=== PATIENT | male | born 1940 | race Caucasian/White ===

== ENCOUNTER 2018-07-18 18:26 | Inpatient (IN) | payer MEDICARE ==
[~2018-07-18] VITALS: Ht 165.1 cm; Wt 73.0 kg
--- NOTE | 2018-07-18 18:37 | NUR ---
LI OGDEN AT BEDSIDE FOR MSE.
[2018-07-18] MEDS ORDERED: ASPI-605 PO (18:38)
[2018-07-18] MEDS ORDERED: LISI10TA5 PO (18:38)
[2018-07-18] MEDS ORDERED: ACET-2154 PO (18:38)
[2018-07-18] MEDS ORDERED: FAMO-132 PO (18:38)
[2018-07-18] MEDS ORDERED: ATOR40TA PO (18:38)
[2018-07-18] MEDS ORDERED: HEPA500034 SUBCUT (18:38)
--- NOTE | 2018-07-18 18:46 | NUR ---
INDUCTION COORDINATION ENGINEER AT BEDSIDE.
--- NOTE | 2018-07-18 18:55 | NUR ---
PT TAKEN TO RADIOLOGY FOR CT SCAN.
--- NOTE | 2018-07-18 18:59 | NUR ---
SHIFT REPORT GIVEN TO MAURA Porras RN.
[2018-07-18 19:03] LABS: BASOPHILS # (AUTO) 0.1 K/uL (0.0-8.0); BASOPHILS % (AUTO) 1.1 % (0.0-2.0); EOSINOPHILS % (AUTO) 0.6 % (0.0-7.0); HEMATOCRIT 37.2 % (36.7-47.1); HEMOGLOBIN 12.8 g/dL (12.5-16.3); LYMPHOCYTES # (AUTO) 1.5 K/uL (20.0-40.0); LYMPHOCYTES % (AUTO) 27.9 % (20.5-51.5); MEAN CORPUSCULAR HEMOGLOBIN 31.3 uug (23.8-33.4); MEAN CORPUSCULAR HGB CONC 35 g/dL (32.5-36.3); MEAN CORPUSCULAR VOLUME 90.6 fL (73.0-96.2); MONOCYTES # (AUTO) 0.5 K/uL (2.0-10.0); MONOCYTES % (AUTO) 8.4 % (0.0-11.0); NEUTROPHILS # (AUTO) 3.4 K/uL (1.8-8.9); PLATELET COUNT (AUTO) 203 K/uL (152-348); RED BLOOD CELL COUNT(AUTO) 4.11 MIL/uL (4.06-5.63); WHITE BLOOD COUNT (AUTO) 5.5 K/uL (3.6-10.2)
[2018-07-18 19:09] LABS: CARBON DIOXIDE 21 mmol/L (21-32); CHLORIDE 104 mmol/L (98-107); CREATININE 1.6 mg/dL (0.6-1.3); GLUCOSE 81 mg/dL (74-106); POTASSIUM 3.7 mmol/L (3.5-5.1); UREA NITROGEN, BLOOD 30 mg/dL (7-18)
[2018-07-18] MEDS ORDERED: LIDOCAINE 2% (UROJET) 10 ML JELLY MM ONE ×2 (19:19→19:30)
[2018-07-18 19:20] LABS: ETHANOL < 3 MG/DL (0-0)
[2018-07-18 19:21] LABS: ALANINE AMINOTRANSFERASE 29 U/L (16-63); ALKALINE PHOSPHATASE 100 U/L (50-136); ASPARTATE AMINOTRANSFERASE 41 U/L (15-37); BILIRUBIN,DIRECT 0.3 mg/dL (0.0-0.2); TOTAL PROTEIN, SERUM 6.6 g/dL (6.4-8.2)
[2018-07-18 19:22] LABS: ACETAMINOPHEN < 2.0 ug/mL (10-30)
[2018-07-18 19:35] LABS: THYROID STIMULATING HORMONE 13.276 mIU/mL (0.358-3.740)
[2018-07-18 19:51] LABS: *BILIRUBIN,URIN NEGATIVE (NEGATIVE); *BLOOD, URINE 1+ (NEGATIVE); *CLARITY,URINE CLEAR (CLEAR); *COLOR,URINE YELLOW (YELLOW); *KETONES,URINE NEGATIVE (NEGATIVE); *UROBILINOGEN,URINE 0.2 E.U./dl (NORMAL); LEUKOCYTE ESTERASE ,URINE NEGATIVE (NEGATIVE); NITRITE, URINE NEGATIVE (NEGATIVE); UGLUCOSE NEGATIVE (NEGATIVE)
[2018-07-18 20:04] LABS: MUCUS,URINE MODERATE /LPF (0-FEW)
[2018-07-18 20:07] LABS: *AMPHETAMINE, URINE NEGATIVE (NEGATIVE); *BARBITURATE, URINE NEGATIVE (NEGATIVE); *CANNABINOID, URINE NEGATIVE (NEGATIVE); *COCCAINE, URINE NEGATIVE (NEGATIVE); *OPIATE, URINE NEGATIVE (NEGATIVE); *PHENCYCLIDINE SCREEN,URINE NEGATIVE (NEGATIVE)
--- NOTE | 2018-07-18 20:18 | NUR ---
Security at bedside for sitting
--- NOTE | 2018-07-18 20:41 | NUR ---
MEDICALLY CLEARED BY DR LUTHER
--- NOTE | 2018-07-18 21:19 | NUR ---
PINKY HERE FOR EVAL
--- NOTE | 2018-07-18 22:31 | NUR ---
Patient transfered to MHU in stable condition. Report given to Amina.
[2018-07-18 22:40] VITALS: BP 118/87
[2018-07-18] MEDS ORDERED: LORAZEPAM 0.5 MG TABLET PO PRN (23:00)
[2018-07-18] MEDS ORDERED: ACETAMINOPHEN 325 MG TABLET PO PRN ×2 (23:00→23:45)
[2018-07-18] MEDS ORDERED: TEMAZEPAM 7.5 MG CAPSULE PO PRN (23:00)
[2018-07-18] MEDS ORDERED: MAGNESIUM HYDROXIDE 30 ML LIQUID UDC PO PRN (23:00)
[2018-07-18] MEDS ORDERED: MAG HYDROX/AL HYDROX/SIMETH 30 ML LIQUID UDC PO PRN (23:00)
--- NOTE | 2018-07-18 23:59 | NUR ---
The patient is unstable and refuses the exam. RN is going to sedate the patient.RN requested the tech to wait for half an hour.
[2018-07-19] MEDS ORDERED: LORAZEPAM 2 MG/1 ML VIAL IM ONE
[2018-07-19] MEDS ORDERED: HALOPERIDOL LACTATE 5 MG/1 ML VIAL IM ONE
--- NOTE | 2018-07-19 01:25 | NUR ---
Admission Note/Chemical Restraint Note: 78 y.o. male brought to MHU from ER via gurney accompanied by ER staff. Pt admitted on a 5150 for DTO/GD under the care of Dr Lyle and Dr Heart. According to the 5150, Pt was increasingly agitated, loud, anxious, and restless. Pt hit and scratched staff, was refusing care, not sleeping, and unable to care for himself. Pt has poor insight and impaired judgment. Upon admission to the unit, Pt is A+Ox1 to self only, VS stable, no c/o pain. Upon face to face evaluation, Pt is confused and disoriented, alert and oriented to himself only. Pt is a poor historian, is unable to state where he is or why he is here, and gives irrelevant answers to questions. Exhibits elevated affect and pressured, rambling speech. Chemical Restraint Note: Pt arrived to the unit disheveled and soaked in urine. Pt uncooperative, agitated, and aggressive during diaper change, yelling and screaming delusional statements. Pt became combative and struck out at ASSISTANT PROGRAM DIRECTOR, and attempted to strike at other staff. Pt refused redirection and was unable to calm. Pt refused prn. Dr Lyle notified of Pt behavior, Haldol 2mg and Ativan 1mg IM ordered and administered with no injury to Pt or staff. Pt calmed approximately 20 minutes after IM administration. Pt noted to be sleeping and breathing even and unlabored. Skin assessment completed with licensed staff-redness noted to sacral area and inner thigh, (B) arm bruising, and red, scaly feet. Only photos taken of sacral area and feet d/t Pt's aggressive behavior and resistance to care. Medical h/o HLD, AAA, multiple CVAs, HTN, dementia, and ARF, GERD, and CHF, NKA. Dr Lyle and Dr Heart notified of admission, meds reconciled, orders received. Pt belongings inventoried, contraband placed in unit locker. Pt unable to provide contact info for any family to be notified, will endorse to f/u with sending facility. Pt too disorganized to sign paperwork. (L) lower leg swelling noted, US ordered with negative result. Pt unable to ambulate, requires total care.
[2018-07-19] MEDS: LEVOTHYROXINE SODIUM 50 MCG TABLET PO SCH (06:06)
[2018-07-19] MEDS ORDERED: Z GUARD REMEDY PASTE 57 GM TUBE TOP PRN (06:15)
[2018-07-19 07:30] VITALS: BP 117/75
[2018-07-19] MEDS ORDERED: FAMOTIDINE 20 MG TABLET PO SCH (09:00)
[2018-07-19] MEDS: FAMOTIDINE 20 MG TABLET PO SCH (09:00)
[2018-07-19] MEDS: ASPIRIN EC 81 MG TABLET.DR PO SCH (09:00)
[2018-07-19] MEDS: LISINOPRIL 10 MG TABLET PO SCH (09:00)
[2018-07-19] MEDS: HEPARIN SODIUM,PORCINE 5,000 UNITS/ML VIAL SQ SCH ×2 (13:47→23:40)
[2018-07-19 15:52] VITALS: BP 139/79
--- NOTE | 2018-07-19 18:49 | NUR ---
Gps/Palm And Back Forger-Patient stayed in bed most of the day, asleep, was able to wake up after lunch and was able to eat per KENO WRITER. Patient remains asleep, no distress,Monitored closely for safety.
--- NOTE | 2018-07-19 20:00 | NUR ---
RECEIVED PATIENT IN HIS BED SLEEPING, BUT AROUSABLE. PT IN NO DISTRESS. NON-COMPLIANT WITH V/S, IRRITABLE WHEN ATTEMPTED TO TAKE V/S. SAFE MEASURES IN PLACE. WILL CONTINUE TO MONITOR.
[2018-07-19 20:58] VITALS: BP 121/56
[2018-07-19] MEDS: RIVASTIGMINE TARTRATE 1.5 MG CAPSULE PO SCH (21:00)
[2018-07-19] MEDS: ATORVASTATIN 40 MG TABLET PO SCH (21:00)
[2018-07-19] MEDS: risperiDONE 0.5 MG TABLET PO SCH (21:00)
[2018-07-19] MEDS: DIVALPROEX 250 MG TABLET.DR PO SCH (21:00)
--- NOTE | 2018-07-19 22:30 | NUR ---
PATIENT REFUSED ALL HIS QHS MEDICATIONS. CONTINUE DROWSY. HEPARIN 5000 SQ GIVEN. SAFETY MEASURES ARE IN PLACE. WILL CONTINUE TO MONITOR.
[2018-07-20] MEDS: LEVOTHYROXINE SODIUM 50 MCG TABLET PO SCH (06:54)
[2018-07-20 07:30] VITALS: BP 99/55
[2018-07-20] MEDS: DIVALPROEX 250 MG TABLET.DR PO SCH ×2 (09:00→20:47)
[2018-07-20] MEDS: RIVASTIGMINE TARTRATE 1.5 MG CAPSULE PO SCH ×2 (09:00→20:36)
[2018-07-20] MEDS: LISINOPRIL 10 MG TABLET PO SCH (09:00)
[2018-07-20] MEDS: FAMOTIDINE 20 MG TABLET PO SCH (09:00)
[2018-07-20] MEDS: ASPIRIN EC 81 MG TABLET.DR PO SCH (09:00)
[2018-07-20] MEDS: risperiDONE 0.5 MG TABLET PO SCH ×2 (09:00→20:48)
[2018-07-20] MEDS: HEPARIN SODIUM,PORCINE 5,000 UNITS/ML VIAL SQ SCH ×2 (09:15→20:38)
--- NOTE | 2018-07-20 12:44 | NUR ---
Gps/Civil Division Deputy Sheriff- Patient remains drowsy, was arousable , responding to his name when being called, no signs of any distress, unable to administer routine meds. r/t to drowsiness, will continue to monitor.
[2018-07-20 15:34] VITALS: BP 131/84
[2018-07-20 19:50] VITALS: BP 104/76
[2018-07-20] MEDS: ATORVASTATIN 40 MG TABLET PO SCH (20:36)
--- NOTE | 2018-07-21 06:08 | NUR ---
GPS: Remain calm and cooperative with medications and care. showered this morning. slept 9:30 hrs through the night. no agitation noted at this time. reposition q 2 hrs for skin safety.
[2018-07-21] MEDS: LEVOTHYROXINE SODIUM 50 MCG TABLET PO SCH (06:20)
[2018-07-21 07:30] VITALS: BP 144/84
[2018-07-21 07:55] LABS: EOSINOPHILS # (AUTO) 0.1 K/uL (0.0-0.7); LYMPHOCYTES # (AUTO) 1.4 K/uL (20.0-40.0)
[2018-07-21 08:06] LABS: BASOPHILS % (AUTO) 1.1 % (0.0-2.0); EOSINOPHILS % (AUTO) 3.2 % (0.0-7.0); LYMPHOCYTES % (AUTO) 34.3 % (20.5-51.5); MEAN CORPUSCULAR HEMOGLOBIN 31.4 uug (23.8-33.4); MEAN CORPUSCULAR HGB CONC 34 g/dL (32.5-36.3); MEAN CORPUSCULAR VOLUME 93.8 fL (73.0-96.2); MONOCYTES # (AUTO) 0.4 K/uL (2.0-10.0); MONOCYTES % (AUTO) 10.4 % (0.0-11.0); PLATELET COUNT (AUTO) 176 K/uL (152-348); RED BLOOD CELL COUNT(AUTO) 3.55 MIL/uL (4.06-5.63)
[2018-07-21 08:08] LABS: HEMATOCRIT 33.3 % (36.7-47.1); HEMOGLOBIN 11.2 g/dL (12.5-16.3)
[2018-07-21 08:14] LABS: CARBON DIOXIDE 26 mmol/L (21-32); CHLORIDE 108 mmol/L (98-107); CREATININE 1.4 mg/dL (0.6-1.3); GLUCOSE 95 mg/dL (74-106); MAGNESIUM 1.9 mg/dL (1.8-2.4); PHOSPHOROUS 3.1 mg/dL (2.5-4.9); POTASSIUM 3.6 mmol/L (3.5-5.1)
[2018-07-21 08:29] LABS: UREA NITROGEN, BLOOD 23 mg/dL (7-18)
[2018-07-21] MEDS: LISINOPRIL 10 MG TABLET PO SCH (09:45)
[2018-07-21] MEDS: RIVASTIGMINE TARTRATE 1.5 MG CAPSULE PO SCH ×2 (09:45→21:00)
[2018-07-21] MEDS: FAMOTIDINE 20 MG TABLET PO SCH (09:45)
[2018-07-21] MEDS: ASPIRIN EC 81 MG TABLET.DR PO SCH (09:45)
[2018-07-21] MEDS: risperiDONE 0.5 MG TABLET PO SCH ×2 (09:45→21:00)
[2018-07-21] MEDS: DIVALPROEX 250 MG TABLET.DR PO SCH ×2 (09:45→21:00)
[2018-07-21] MEDS: HEPARIN SODIUM,PORCINE 5,000 UNITS/ML VIAL SQ SCH ×2 (09:47→21:00)
[2018-07-21 15:12] VITALS: BP 121/84
--- NOTE | 2018-07-21 15:40 | NUR ---
Initial discharge note: The patient currently resides at [facility] [[address] [place] [address]; ]. Per prevention coordinator, Naima, the patient may return when ready for discharge. SW Director Security Risk Management and other SW will continue to search for point of contact and work with IDT to ensure safe and proper discharge planning.
--- NOTE | 2018-07-21 17:56 | NUR ---
PATIENT ALERT, IN NO DISTRESS, COMPLIANT WITH CARE, NO BEHAVIORAL ISSUES NOTED. PATIENT NOT ABLE TO RESPOND APPROPRIATELY TO QUESTIONS, DISORGANIZED THOUGHTS, CONFUSED. SAFETY MEASURES IN PLACE.
[2018-07-21 20:09] VITALS: BP 135/93
[2018-07-21] MEDS: ATORVASTATIN 40 MG TABLET PO SCH (21:00)
--- NOTE | 2018-07-21 22:24 | NUR ---
RECEIVED PATIENT IN BED TALKING TO HIMSELF.WHEN ASKED WHO HE WAS TALKING TO HE SAID" GO TELL HER I WILL MET HER IN [place].'I HAVE BEEN NICE ENOUGH'. BUT COULD NOT SAY WHO IT WAS. HE ALSO REFUSED HIS MEDS AND APPEARED INTERNALLY PRE OCCUPIED.WILL CONTINUE TO MONITOR.
[2018-07-22] MEDS: LEVOTHYROXINE SODIUM 50 MCG TABLET PO SCH (06:46)
--- NOTE | 2018-07-22 06:48 | NUR ---
REFUSED ALL MEDS.HE TALKED CONSTANTLY TO HIMSELF ALL NIGHT.HAD A SINGLE EPISODE OF VOMITING.COULD NOT SAY WHAT PRECIPITATED IT. V/S WNL. EP[employer] GROUP CALLED. MD WILL CALL BACK LATER/
[2018-07-22 07:30] VITALS: BP 138/88
[2018-07-22] MEDS: RIVASTIGMINE TARTRATE 1.5 MG CAPSULE PO SCH ×2 (09:18→21:41)
[2018-07-22] MEDS: DIVALPROEX 250 MG TABLET.DR PO SCH ×2 (09:19→21:41)
[2018-07-22] MEDS: ASPIRIN EC 81 MG TABLET.DR PO SCH (09:19)
[2018-07-22] MEDS: LISINOPRIL 10 MG TABLET PO SCH (09:19)
[2018-07-22] MEDS: risperiDONE 0.5 MG TABLET PO SCH ×2 (09:19→21:41)
[2018-07-22] MEDS: FAMOTIDINE 20 MG TABLET PO SCH (09:19)
[2018-07-22] MEDS: HEPARIN SODIUM,PORCINE 5,000 UNITS/ML VIAL SQ SCH ×2 (09:21→21:46)
[2018-07-22 16:09] VITALS: BP 122/87
--- NOTE | 2018-07-22 18:03 | NUR ---
RECEIVED PATIENT AWAKE ON THE CHAIR, PATIENT COMPLIANT TO MEDICATION, DENIES PAIN, KEPT COMFORTABLE AT ALL TIMES
[2018-07-22 20:00] VITALS: BP 122/79
[2018-07-22] MEDS: ATORVASTATIN 40 MG TABLET PO SCH (21:41)
--- NOTE | 2018-07-23 04:27 | NUR ---
Received patient in bed, in deep sleep, lethargic. No acute distress or SOB noted. On room air.Opened his eyes with calling his name but not verbally responsive. VS stable. Tried to wake him up and reorient him. Took his medication, had 2 apple juice. No Complain of pain or discomfort. No SI. Calm and cooperative. Compliant with care and medication. All due medication given and well tolerated. Safety measures maintained. Bed in low position, brake and alarm on, side rails up x2 for safety. Will continue to monitor and will endorse to the day shift nurse accordingly.
[2018-07-23] MEDS: LEVOTHYROXINE SODIUM 50 MCG TABLET PO SCH (06:09)
[2018-07-23 07:30] VITALS: BP 117/77
[2018-07-23] MEDS: DIVALPROEX 250 MG TABLET.DR PO SCH ×2 (08:24→21:52)
[2018-07-23] MEDS: ASPIRIN EC 81 MG TABLET.DR PO SCH (08:24)
[2018-07-23] MEDS: FAMOTIDINE 20 MG TABLET PO SCH (08:24)
[2018-07-23] MEDS: LISINOPRIL 10 MG TABLET PO SCH (08:24)
[2018-07-23] MEDS: risperiDONE 0.5 MG TABLET PO SCH ×2 (08:24→21:52)
[2018-07-23] MEDS: RIVASTIGMINE TARTRATE 1.5 MG CAPSULE PO SCH ×2 (08:24→21:53)
[2018-07-23] MEDS: HEPARIN SODIUM,PORCINE 5,000 UNITS/ML VIAL SQ SCH ×2 (08:26→22:41)
[2018-07-23 16:00] VITALS: BP 139/80
--- NOTE | 2018-07-23 17:08 | NUR ---
Firearms report: structural worker completed and submitted a [employer] firearms report for a 5150 DTO certification.
--- NOTE | 2018-07-23 20:00 | NUR ---
RECEIVED PATIENT IN HIS ROOM IN BED. HE IS NOTED AWAKE A/O X 1 (TO NAME ONLY)NO CHANGES IN LOC. HE IS NOTED CALM AND PLEASANT UPON APPROACHED; HOWEVER, HE GETS EASILY IRRITABLE WHEN PROVING PERINEAL CARE. IMPAIRED INSIGHT AND JUDGMENT ARE NOTED. PT IS NOTED CONFUSED AND DISORGANIZED. SAFETY WAS EMPHASIS. WAS REASSURED FOR HIS SAFETY. WILL CONTINUE TO MONITOR.
[2018-07-23 21:17] VITALS: BP 133/78
[2018-07-23] MEDS: ATORVASTATIN 40 MG TABLET PO SCH (21:53)
[2018-07-24] MEDS: LEVOTHYROXINE SODIUM 50 MCG TABLET PO SCH (06:54)
[2018-07-24 07:28] LABS: EOSINOPHILS # (AUTO) 0.2 K/uL (0.0-0.7); EOSINOPHILS % (AUTO) 4.1 % (0.0-7.0); HEMOGLOBIN 12.2 g/dL (12.5-16.3); LYMPHOCYTES # (AUTO) 1.5 K/uL (20.0-40.0); LYMPHOCYTES % (AUTO) 31.7 % (20.5-51.5); MEAN CORPUSCULAR HEMOGLOBIN 31.3 uug (23.8-33.4); MEAN CORPUSCULAR HGB CONC 33 g/dL (32.5-36.3); MEAN CORPUSCULAR VOLUME 94.8 fL (73.0-96.2); MONOCYTES # (AUTO) 0.6 K/uL (2.0-10.0); MONOCYTES % (AUTO) 12.5 % (0.0-11.0); NEUTROPHILS # (AUTO) 2.4 K/uL (1.8-8.9); NEUTROPHILS % (AUTO) 50.7 % (38.5-71.5); PLATELET COUNT (AUTO) 212 K/uL (152-348); WHITE BLOOD COUNT (AUTO) 4.7 K/uL (3.6-10.2)
[2018-07-24 07:30] VITALS: BP 121/80
[2018-07-24 07:42] LABS: CARBON DIOXIDE 25 mmol/L (21-32); CHLORIDE 113 mmol/L (98-107); CREATININE 1.5 mg/dL (0.6-1.3); GLUCOSE 107 mg/dL (74-106); MAGNESIUM 1.8 mg/dL (1.8-2.4); PHOSPHOROUS 3.8 mg/dL (2.5-4.9); POTASSIUM 4.2 mmol/L (3.5-5.1); UREA NITROGEN, BLOOD 35 mg/dL (7-18)
[2018-07-24 08:21] LABS: EOSINOPHILS % (MANUAL) 3 % (0-8); LYMPHOCYTES % (MANUAL) 31 % (20-40); MONOCYTES % (MANUAL) 12 % (2-10); NEUTROPHILS % (MANUAL) 53 % (42-75); REACTIVE LYMPHOCYTES 1 % (0-0)
[2018-07-24] MEDS: RIVASTIGMINE TARTRATE 1.5 MG CAPSULE PO SCH ×2 (09:24→20:46)
[2018-07-24] MEDS: risperiDONE 0.5 MG TABLET PO SCH ×2 (09:24→20:46)
[2018-07-24] MEDS: HEPARIN SODIUM,PORCINE 5,000 UNITS/ML VIAL SQ SCH ×2 (09:24→20:49)
[2018-07-24] MEDS: DIVALPROEX 250 MG TABLET.DR PO SCH ×2 (09:24→20:47)
[2018-07-24] MEDS: LISINOPRIL 10 MG TABLET PO SCH (09:24)
[2018-07-24] MEDS: ASPIRIN EC 81 MG TABLET.DR PO SCH (09:24)
[2018-07-24] MEDS: FAMOTIDINE 20 MG TABLET PO SCH (09:25)
--- NOTE | 2018-07-24 11:00 | NUR ---
Gps/Collections Officer- Patient sleepy, arousable, needed prompting and encouragement. Patient was fed during breakfast, no initiating to feed self.Coughing was noted during meals. HOB elevated, swallow precautions observed.
[2018-07-24 16:00] VITALS: BP 126/70
[2018-07-24 20:00] VITALS: BP 124/76
[2018-07-24] MEDS: ATORVASTATIN 40 MG TABLET PO SCH (20:47)
--- NOTE | 2018-07-24 21:47 | NUR ---
Received pt sleeping in bed. Arousable to name. AAO x1. No acute distress noted. No facial cues for pain noted. HOB elevated. Aspiration precaution maintained. Meds given as ordered, given with apple sauce one at a time. Tolerated well. Safety measures maintained. Bed alarm on. Will continue to monitor.
[2018-07-25] MEDS: LEVOTHYROXINE SODIUM 50 MCG TABLET PO SCH (06:04)
[2018-07-25 07:30] VITALS: BP 123/79
[2018-07-25] MEDS: HEPARIN SODIUM,PORCINE 5,000 UNITS/ML VIAL SQ SCH (08:14)
[2018-07-25] MEDS: ASPIRIN EC 81 MG TABLET.DR PO SCH (09:41)
[2018-07-25] MEDS: RIVASTIGMINE TARTRATE 1.5 MG CAPSULE PO SCH (09:41)
[2018-07-25] MEDS: DIVALPROEX 250 MG TABLET.DR PO SCH (09:41)
[2018-07-25 09:42] VITALS: BP 123/79
[2018-07-25] MEDS: LISINOPRIL 10 MG TABLET PO SCH (09:42)
[2018-07-25] MEDS: risperiDONE 0.5 MG TABLET PO SCH (09:42)
[2018-07-25] MEDS: FAMOTIDINE 20 MG TABLET PO SCH (09:42)
--- NOTE | 2018-07-25 10:29 | NUR ---
DISCHARGE NOTE: Patient will be discharged back to [facility] [[address] [place] [address]; ] today and transportation will be provided by ambulance at 1:00pm. Please arrange ambulance transportation for this patient. Acceptance back to facility was given by Naima, student records coordinator, who states they are ready to accept patient today. Patient is AxOx1 and denies suicidal and homicidal ideations. Patient has no family or friends to notify of discharge. Patient will be followed by Dr. Orozco (psychiatrist) and Dr. Hall (jet wiper). Patient has been provided with mental health resources including [facility] Crisis Line [ ], [facility] [ ], and National Suicide Prevention Lifeline [ ].
--- NOTE | 2018-07-25 11:49 | NUR ---
Gps/Housekeeper- Speech therapist in to evaluate swallowing , was informed patient having occ coughing during meals and when drinking liquids, mad sure patient fully awake during meals, and HOB elevated, upright position.Discharged planning in progress, patient to go back to [facility] as planned, patient was informed.
--- NOTE | 2018-07-25 13:28 | NUR ---
Gps/Student Services Advisor- Called [facility], and spoked to [facility] (Nurse) report was given, informed worm picker time of 1400 via ambulance. All belongings was given back to patient.Patient was assigned to bed # 102-B.(at [facility])
--- NOTE | 2018-07-25 15:10 | NUR ---
Gps/[employer] Kindergarten Teacher- Discharged to [facility] via ambulance no distress.All elongings given back to patient.
== END 2018-07-25 15:10 | DRG 885 ==
LOC: ER 18:28 → GPS 22:28
PROVIDERS: ADMIT Psychiatry & Neurology Psychiatry; ATTEND Internal Medicine
DX: F29 Unspecified psychosis not due to a substance or known physiological condition (principal); F03.91 Unspecified dementia, unspecified severity, with behavioral disturbance; I13.0 Hypertensive heart and chronic kidney disease with heart failure and stage 1 through stage 4 chronic kidney disease, or unspecified chronic kidney disease; I50.32 Chronic diastolic (congestive) heart failure; Z79.82 Long term (current) use of aspirin; N18.2 Chronic kidney disease, stage 2 (mild); E03.9 Hypothyroidism, unspecified; Z86.73 Personal history of transient ischemic attack (TIA), and cerebral infarction without residual deficits; I25.2 Old myocardial infarction; I25.10 Atherosclerotic heart disease of native coronary artery without angina pectoris; M79.89 Other specified soft tissue disorders; Z91.14 Patient's other noncompliance with medication regimen; H54.7 Unspecified visual loss; H91.90 Unspecified hearing loss, unspecified ear
CPT/HCPCS: 36415; 70030-TC; 70450; 71045; 80307; 83605; 83735; 84100; 84443; 85025; 85730; 87040; 87086; 92526; 92610; 93005; 97116; 97530; A4663; C1758; G0480; G0480-TC; J1630; J1644; J2060; J3490